=== PATIENT | female | born 1995 | race American Indian/Alaskan Native ===

== ENCOUNTER 2017-09-23 10:26 | Emergency (ER) | payer BC ==
--- NOTE | 2017-09-23 13:44 | Emergency Department Report ---
Abscess Boil HPI - HPI Chief Complaint: Skin/Abscess/Foreign Body Stated Complaint: BOIL ON RIGHT LEG Time Seen by Provider: 09/23/17 12:19 Duration: 2 Days Location: Perianal (right groin) Severity: Moderate (6/10) History: Yes Pain (boil to right groin), Yes Previous History (abscess), No Fever, No Purulent Drainage, No Numbness, No Foreign Body, No Insect Bite HPI: Pt here report that she has also her right groin area that is increase in in pain this morning. This has been ongoing for 2 days. She reports redness and swelling. Immunizations up-to-date. She's had similar incident in the past. Denies any fever or chills. Denies any vaginal discharge or bleeding. Denies any abdominal pain. Denies any injury. Patient denies any medical problem except that she had abscess in the past of unknown cause. Home Medications: Previous Rx's Medication Instructions Recorded Last Taken Type Acetaminophen/Codeine [Tylenol 1 tab PO Q6H PRN #20 tab 09/23/17 Unknown Rx /Codeine # 3 tab] Sulfamethoxazole/Trimethoprim 1 each PO Q12H 10 Days #20 tablet 09/23/17 Unknown Rx [Bactrim DS TAB] Allergies/Adverse Reactions: Allergies Allergy/AdvReac Type Severity Reaction Status Date / Time ibuprofen AdvReac Swelling Verified 09/23/17 10:44 ED Review of Systems ROS: Stated complaint: BOIL ON RIGHT LEG Other details as noted in HPI Comment: All other systems reviewed and negative Constitutional: no symptoms reported ENT: denies: throat pain Respiratory: no symptoms reported Cardiovascular: denies: chest pain, palpitations, edema, syncope Gastrointestinal: denies: abdominal pain, nausea, vomiting Genitourinary: denies: hematuria, discharge Musculoskeletal: denies: back pain, arthralgia Skin: other (redness ,swelling and boil right groin) Neurological: denies: headache ED Past Medical Hx - Past Medical History Previous Medical History?: Yes Additional medical history: Abscess - Surgical History Past Surgical History?: Yes Additional Surgical History: finger left hand - Family History Family history: hypertension - Social History Smoking Status: Current Every Day Smoker Substance Use Type: Alcohol, Marijuana - Medications Home Medications: Home Medications Medication Instructions Recorded Confirmed Last Taken Type Acetaminophen/Codeine [Tylenol 1 tab PO Q6H PRN #20 tab 09/23/17 Unknown Rx /Codeine # 3 tab] Sulfamethoxazole/Trimethoprim 1 each PO Q12H 10 Days #20 tablet 09/23/17 Unknown Rx [Bactrim DS TAB] ED Abscess Boil Physical Exam - Exam General: Vital signs noted. No distress. Alert and acting appropriately. This is a 22-year-old female well-nourished well-developed in no acute distress. Front/Back of Body, Lg (Color): 1 - Patient with 1 x 1 cm indurated here without any fluctuant to right proximal labia. Tender to palpate. No drainage Size: 1 cm (1 x 1 cm) Exam: Yes Tenderness (right proximal labia), Yes Surrounding Cellulites/ Erythema (right proximal labia), Yes Normal Neurologic Exam (no gross focal deficits), Yes Normal Circulation (patient with good color, movement, temperature and sensation to extremities. +2 pulses.), No Fluctuance, No Lymphangitis, No Crepitation, No Heart Murmur Exam: Cardiovascular:S1S2. Regular rate and rhythm negative murmur. Lungs: clear Auscultated bilaterally, no rhonchi wheezes or rales. Abdomen: Palpated in all quadrants, no guarding or rebound tenderness Negative CVA tenderness bilaterally and normal bowel sounds in all quadrants I & D Note - I & D Note I & D Note: Incision and drainage not done due to positive induration without any fluctuant. Patient to return to emergency room in 2 days after applying warm compresses 3-4 times a day. ED Course Vital Signs 09/23/17 10:44 Temperature 98.5 F Pulse Rate 67 Respiratory 18 Rate Blood Pressure 132/92 O2 Sat by Pulse 98 Oximetry - Reevaluation(s) Reevaluation #1: 09/23/17 14:02 Patient given Bactrim DS 1 by mouth and Percocet 5/325 2 tablets in the emergency room. Critical care attestation.: If time is entered above; I have spent that time in minutes in the direct care of this critically ill patient, excluding procedure time. ED Medical Decision Making - Medical Decision Making ED course: Patient with abscess to right proximal labia which is not ready to be drained. She was instructed to return to the emergency room 2 days to have abscess drained and packed after applying warm compresses to area. Patient was given Percocet 5/325 2 tablets and Bactrim DS in the emergency room. I also we' ll be referring her to [facility] for follow-up and evaluation of recurrent abscess. Patient voiced understanding of diagnosis and treatment plan and need to follow-up. She'll be discharged home with her family member with prescription for Tylenol 3 and Bactrim DS. ED Disposition Clinical Impression: Cellulitis of labia, Abscess of right genital labia Disposition: - TO HOME OR SELFCARE Is pt being admited?: No Does the pt Need Aspirin: No Condition: Stable Instructions: Abscess (ED), Cellulitis (ED) Additional Instructions: Please return to the emergency room in 2 days to have procedure for incision and drainage and packing Please take antibiotic as prescribed Please take Tylenol for pain but do not drive or operate heavy machinery while taking this medication Keep affected area clean and dry and apply warm compresses to affected site 3-4 times a day to facilitate softening. Prescriptions: Acetaminophen/Codeine [Tylenol /Codeine # 3 tab] 1 tab PO Q6H PRN #20 tab PRN Reason: Pain, Moderate (4-6) Sulfamethoxazole/Trimethoprim [Bactrim DS TAB] 1 each PO Q12H 10 Days #20 tablet Referrals: PRIMARY CARE [Primary Care Provider] - 09/26/17 [facility] [Provider Group] - 09/26/17 Forms: Work/School Release Form(ED)
[2017-09-23] MEDS ORDERED: BACTRIM DS PO ONE (13:45)
[2017-09-23] MEDS ORDERED: PERCOCET 5/325 PO ONE (13:45)
[2017-09-23 14:32] VITALS: BP 115/82
== END 2017-09-23 14:32 | disposition home or self-care (01) ==
LOC: ED 10:26
DX: N76.2 Acute vulvitis (principal); N76.4 Abscess of vulva; F17.200 Nicotine dependence, unspecified, uncomplicated; F12.10 Cannabis abuse, uncomplicated; Z88.6 Allergy status to analgesic agent
CPT/HCPCS: 99282

== ENCOUNTER 2017-09-25 11:39 | Emergency (ER) | payer BC ==
[2017-09-25 11:59] VITALS: BP 127/79
[2017-09-25] MEDS ORDERED: NORCO 5/325 PO ONE (12:49)
--- NOTE | 2017-09-25 12:50 | Emergency Department Report ---
Abscess Boil HPI - HPI Chief Complaint: Skin/Abscess/Foreign Body Stated Complaint: BOIL Time Seen by Provider: 09/25/17 12:32 Location: Lower Extremity Severity: Moderate History: Yes Pain, Yes Previous History, No Fever, No Purulent Drainage, No Numbness, No Foreign Body, No Insect Bite HPI: 22-year-old returns to ED for incision and drainage of groin abscess. Patient was seen here 2 days ago and told to return for draining of her abscess. Patient states she hasn't taken her medication as prescribed. Home Medications: Previous Rx's Medication Instructions Recorded Last Taken Type Acetaminophen/Codeine [Tylenol 1 tab PO Q6H PRN #20 tab 09/23/17 Unknown Rx /Codeine # 3 tab] Sulfamethoxazole/Trimethoprim 1 each PO Q12H 10 Days #20 tablet 09/23/17 Unknown Rx [Bactrim DS TAB] HYDROcodone/APAP 5-325 [[place] 1 each PO Q6HR PRN #10 tablet 09/25/17 Unknown Rx 5/325] Allergies/Adverse Reactions: Allergies Allergy/AdvReac Type Severity Reaction Status Date / Time ibuprofen AdvReac Swelling Verified 09/23/17 10:44 ED Review of Systems ROS: Stated complaint: BOIL Other details as noted in HPI Constitutional: denies: chills, fever Eyes: denies: eye pain, eye discharge, vision change ENT: denies: ear pain, throat pain Respiratory: denies: cough, shortness of breath, wheezing Cardiovascular: denies: chest pain, palpitations Endocrine: no symptoms reported Gastrointestinal: denies: abdominal pain, nausea, diarrhea Genitourinary: denies: urgency, dysuria, discharge Musculoskeletal: denies: back pain, joint swelling, arthralgia Skin: denies: rash, lesions Neurological: denies: headache, weakness, paresthesias Psychiatric: denies: anxiety, depression Hematological/Lymphatic: denies: easy bleeding, easy bruising ED Past Medical Hx - Past Medical History Additional medical history: Abscess - Surgical History Additional Surgical History: finger left hand - Social History Smoking Status: Current Every Day Smoker - Medications Home Medications: Home Medications Medication Instructions Recorded Confirmed Last Taken Type Acetaminophen/Codeine [Tylenol 1 tab PO Q6H PRN #20 tab 09/23/17 Unknown Rx /Codeine # 3 tab] Sulfamethoxazole/Trimethoprim 1 each PO Q12H 10 Days #20 tablet 09/23/17 Unknown Rx [Bactrim DS TAB] HYDROcodone/APAP 5-325 [[place] 1 each PO Q6HR PRN #10 tablet 09/25/17 Unknown Rx 5/325] ED Abscess Boil Physical Exam - Exam General: Vital signs noted. No distress. Alert and acting appropriately. Front/Back of Body, Lg (Color): 1 - 5-6 cm flactulant abscess to area, tender to palp Size: 5 cm Exam: Yes Tenderness, Yes Fluctuance, Yes Surrounding Cellulites/Erythema, Yes Normal Neurologic Exam, Yes Normal Circulation, No Lymphangitis, No Crepitation , No Heart Murmur I & D Note - I & D Note I & D Note: Patient positioned appropriately, 15cc lidocaine with/without epinephrine was used as a local anesthetic. #11 blade scalpal used for single incision. Additional local anesthetic injected into surrounding viable tissue prior to blunt dissection of loculated adhesions. Copius drainage of pus. Wound packed with iodoform gauze. Procedure tolerated without complications. Wound dressed with sterile 4x4 guaze and paper tape. Pt tolerated procedure well. ED Course Vital Signs 09/25/17 11:51 Temperature 98.2 F Pulse Rate 127 H Respiratory 22 Rate Blood Pressure 127/79 O2 Sat by Pulse 99 Oximetry Critical care attestation.: If time is entered above; I have spent that time in minutes in the direct care of this critically ill patient, excluding procedure time. ED Medical Decision Making - Medical Decision Making 22-year-old female presents with right groin abscess ED course: Patient initiated 2 tablets of [place]. I&D performed : see ID note Patient tolerated procedure well Discussed the patient to return in 3 days for packing removal and wound check Vital signs are normal patient is in no acute distress ED Disposition Clinical Impression: Abscess of right groin Disposition: DC-01 TO HOME OR SELFCARE Is pt being admited?: No Does the pt Need Aspirin: No Condition: Stable Instructions: Abscess Incision and Drainage (ED), Acute Wound Care (ED), Abscess (ED) Additional Instructions: Make sure to follow up with the primary care physician as discussed. Continue to take all your medications as you've been prescribed 2 days ago. If you have any worsening symptoms or develop new symptoms please return to ED immediately. return in 72 hours for packing removal. continue warm compress Prescriptions: HYDROcodone/APAP 5-325 [[place] 5/325] 1 each PO Q6HR PRN #10 tablet PRN Reason: Pain Referrals: PRIMARY CARE, [Primary Care Provider] - 3-5 Days Forms: Accompanied Note, Work/School Release Form(ED) Time of Disposition: 14:16
== END 2017-09-25 14:43 | disposition home or self-care (01) ==
LOC: ED 11:39
DX: L02.214 Cutaneous abscess of groin (principal); F17.200 Nicotine dependence, unspecified, uncomplicated; Z88.8 Allergy status to other drugs, medicaments and biological substances
CPT/HCPCS: 99282

== ENCOUNTER 2017-09-28 09:07 | Emergency (ER) | payer BC ==
[2017-09-28 09:32] VITALS: BP 133/76
--- NOTE | 2017-09-28 10:27 | Emergency Department Report ---
ED Recheck HPI - General Chief Complaint: Skin/Abscess/Foreign Body Stated Complaint: PACKING REMOVAL Time Seen by Provider: 09/28/17 10:13 Source: patient, family Mode of arrival: Wheelchair Limitations: No Limitations - History of Present Illness Initial Comments: This is a 22-year-old female nontoxic, well nourished in appearance, no acute signs of distress presents to the ED with c/o of packing removal from right groin region. Patient had a incision and drainage done 3 days ago and was instructed to return today. Patient states she is still currently is taking her antibiotics and was prescribed. Patient denies any fever, chills, nausea, vomiting, chest pain shortness of breath. Patient states allergies to ibuprofen. Patient denies any significant past medical history. MD Complaint: wound re-check -: days(s) (3) Initial Visit For: abscess Returns Today for: wound recheck Symptoms Since Prior Visit: no new symptoms, improved Context: planned re-check Associated Symptoms: none. denies: fever, chills, chest pain, shortness of breath, rash, malaise, nasuea, abdominal pain - Related Data Previous Rx's Medication Instructions Recorded Last Taken Type Acetaminophen/Codeine [Tylenol 1 tab PO Q6H PRN #20 tab 09/23/17 Unknown Rx /Codeine # 3 tab] Sulfamethoxazole/Trimethoprim 1 each PO Q12H 10 Days #20 tablet 09/23/17 Unknown Rx [Bactrim DS TAB] HYDROcodone/APAP 5-325 [[place] 1 each PO Q6HR PRN #10 tablet 09/25/17 Unknown Rx 5/325] traMADol [Ultram] 50 mg PO Q6HR PRN #12 tablet 09/28/17 Unknown Rx Allergies Allergy/AdvReac Type Severity Reaction Status Date / Time ibuprofen AdvReac Swelling Verified 09/23/17 10:44 ED Review of Systems ROS: Stated complaint: PACKING REMOVAL Other details as noted in HPI Constitutional: denies: chills, fever Eyes: denies: eye pain, eye discharge, vision change ENT: denies: ear pain, throat pain Respiratory: denies: cough, shortness of breath, wheezing Cardiovascular: denies: chest pain, palpitations Endocrine: no symptoms reported Gastrointestinal: denies: abdominal pain, nausea, diarrhea Genitourinary: denies: urgency, dysuria, discharge Musculoskeletal: denies: back pain, joint swelling, arthralgia Skin: denies: rash, lesions Neurological: denies: headache, weakness, paresthesias Psychiatric: denies: anxiety, depression Hematological/Lymphatic: denies: easy bleeding, easy bruising ED Past Medical Hx - Past Medical History Previous Medical History?: Yes Additional medical history: Abscess - Surgical History Past Surgical History?: Yes Additional Surgical History: finger left hand, Tonsils removed - Social History Smoking Status: Current Every Day Smoker Substance Use Type: Alcohol, Marijuana, Prescribed - Medications Home Medications: Home Medications Medication Instructions Recorded Confirmed Last Taken Type Acetaminophen/Codeine [Tylenol 1 tab PO Q6H PRN #20 tab 09/23/17 Unknown Rx /Codeine # 3 tab] Sulfamethoxazole/Trimethoprim 1 each PO Q12H 10 Days #20 tablet 09/23/17 Unknown Rx [Bactrim DS TAB] HYDROcodone/APAP 5-325 [[place] 1 each PO Q6HR PRN #10 tablet 09/25/17 Unknown Rx 5/325] traMADol [Ultram] 50 mg PO Q6HR PRN #12 tablet 09/28/17 Unknown Rx ED Physical Exam - General Limitations: No Limitations General appearance: alert, in no apparent distress - Head Head exam: Present: atraumatic, normocephalic - Eye Eye exam: Present: normal appearance Pupils: Present: normal accommodation - ENT ENT exam: Present: normal exam, mucous membranes moist - Neck Neck exam: Present: normal inspection, full ROM - Respiratory Respiratory exam: Present: normal lung sounds bilaterally. Absent: respiratory distress - Cardiovascular Cardiovascular Exam: Present: regular rate, normal rhythm. Absent: systolic murmur, diastolic murmur, rubs, gallop - GI/Abdominal GI/Abdominal exam: Present: soft, normal bowel sounds - Extremities Exam Extremities exam: Present: normal inspection - Back Exam Back exam: Present: normal inspection - Neurological Exam Neurological exam: Present: alert, oriented X3 - Psychiatric Psychiatric exam: Present: normal affect, normal mood - Skin Skin exam: Present: warm, dry, intact, normal color. Absent: rash - Other Other exam information: right groin with 2 cm incision with packing and sterile dressing. No induration or fluctuance was noted. No swelling. ED Course Vital Signs 09/28/17 09:29 Temperature 97.9 F Pulse Rate 72 Respiratory 20 Rate Blood Pressure 133/76 O2 Sat by Pulse 98 Oximetry - Reevaluation(s) Reevaluation #1: 09/28/17 10:19 Patient is speaking in full sentences with no signs of distress noted. ED Recheck MDM - Medical Decision Making one fourth iodoform packing has been removed successfully. Patient's procedure well. Patient received Ultram for pain. Patient's boyfriend is currently at the bedside and stated he will drive the patient home after discharge. Patient received Ultram at discharge she stated she ran out of her [place] that was prescribed to her. Patient was educated on proper wound care. A sterile dressing has been applied. Patient was informed to continue taking antibiotics as was prescribed previously by a provided. At time of discharge, the patient does not seem toxic or ill in appearance. No acute signs of distress noted. Patient agrees to discharge treatment plan of care. No further questions noted by the patient. Critical care attestation.: If time is entered above; I have spent that time in minutes in the direct care of this critically ill patient, excluding procedure time. ED Disposition Clinical Impression: Abscess packing removal Disposition: DC-01 TO HOME OR SELFCARE Is pt being admited?: No Does the pt Need Aspirin: No Condition: Stable Instructions: Acute Wound Care (ED), Tramadol (By mouth) Additional Instructions: Follow-up with a primary care doctor in 3-5 days or if symptoms worsen and continue return to emergency room as soon as possible. Prescriptions: traMADol [Ultram] 50 mg PO Q6HR PRN #12 tablet PRN Reason: Pain Referrals: CAROLYN CASILLAS [Other] - 3-5 Days DOMINIQUE MEJIA MD [Staff Physician] - 3-[address] [facility] [Outside] - 3-5 Days Forms: Work/School Release Form(ED)
[2017-09-28] MEDS: ULTRAM PO ONE (10:41)
== END 2017-09-28 10:42 | disposition home or self-care (01) ==
LOC: ED 09:07
DX: Z48.00 Encounter for change or removal of nonsurgical wound dressing (principal); F17.200 Nicotine dependence, unspecified, uncomplicated; F12.10 Cannabis abuse, uncomplicated; Z88.6 Allergy status to analgesic agent